=== PATIENT | female | born 1950 | race Hispanic/Latino ===

== ENCOUNTER → 2017-08-15 | Outpatient (CLI) | payer MEDICARE ==
[~2017-08-15] MED LIST: ASPIR-LOW81 MG PO; CALCIUM 600 +1 EAC2 PO; FENOFIBRATE160 MG PO; OMEPRAZOLE40 MG PO; ONGLYZA2.5 MG PO; PRAVASTATIN SOD20 MG PO; ZESTRIL20 MG PO
== END ==
LOC: SLEEP 20:45
PROVIDERS: ATTEND Internal Medicine
DX: G47.33 Obstructive sleep apnea (adult) (pediatric) (principal)

== ENCOUNTER → 2017-10-15 | Day surgery (SDC) | payer MEDICARE ==
[2017-09-30 10:14] LABS: BASOPHILS % 0.5 % (0.0-1.0); EOSINOPHILS # (AUTO) 0.1 (0.0-0.4); EOSINOPHILS % 1.7 % (0.0-6.0); HEMOGLOBIN 13.7 g/dL (12.0-16.0); LYMPHOCYTES # (AUTO) 1.9 (1.0-3.2); MEAN CORPUSCULAR HEMOGLOBIN 29.2 pg (28-32); MEAN CORPUSCULAR HGB CONC 32.6 g/dL (31-35); MEAN CORPUSCULAR VOLUME 89.6 fL (81-99); MONOCYTES # (AUTO) 0.7 (0.2-0.8); MONOCYTES % 8.2 % (4.4-11.3); NEUTROPHILS # (AUTO) 5.5 (2.1-6.9); NEUTROPHILS % 65.5 % (38.7-80.0); PLATELET COUNT 252 x10e3/uL (140-360); RED BLOOD COUNT 4.69 x10e6/uL (3.6-5.1); RED CELL DISTRIBUTION WIDTH 13.2 % (11.7-14.4)
[2017-09-30 10:32] LABS: INR 0.87; PROTHROMBIN TIME 12.3 seconds (11.9-14.5)
[2017-09-30 10:33] LABS: ANION GAP 14.8 mmol/L (8-16); BLOOD UREA NITROGEN 19 mg/dL (7-26); BUN/CREATININE RATIO 23 (6-25); CALCIUM 10.5 mg/dL (8.4-10.2); CARBON DIOXIDE 29 mmol/L (22-29); CHLORIDE 102 mmol/L (98-107); CREATININE, SERUM 0.84 mg/dL (0.57-1.11); EST GLOMERULAR FILTRATION RATE > 60 ML/MIN (60-); GLUCOSE 167 mg/dL (74-118); POTASSIUM 4.8 mmol/L (3.5-5.1); SODIUM 141 mmol/L (136-145)
--- NOTE | 2017-09-30 18:08 | Diagnostic Imaging Report ---
PROCEDURE: Frontal and lateral views of the chest. COMPARISON: None. INDICATIONS: PRE OPERATIVE CHEST XRAY FOR LEFT HEART CATH FINDINGS: Lines/tubes: None. Lungs: Elevation right hemidiaphragm with associated right basilar atelectasis. Left lung is well-inflated and clear. No evidence of pneumonia or pulmonary edema. Pleura: There is no pleural effusion or pneumothorax. Heart and mediastinum: The heart and the mediastinum are normal. Atherosclerotic calcifications in the aorta. Bones: No acute bony abnormality. Right upper quadrant cholecystectomy clips. IMPRESSION: 1. Elevation of the right hemidiaphragm with associated atelectasis. Correlate for right hemidiaphragmatic paralysis. 2. No acute cardiopulmonary disease. Dictated by: Clay Varela M.D. on 09/30/2017 at 18:18 Electronically approved by: Clay Varela M.D. on 09/30/2017 at 18:18
[~2017-10-15] VITALS: Ht 157.5 cm; Wt 83.0 kg
[~2017-10-15] MED LIST changes: +AMLODIPINE BESYL5 MG PO; +FENTANYL CITRATE/PF 100MCG/2 ML INJ ONE; +GLIMEPIRIDE2 MG PO; +HEPARIN SOD/SOD CHLORIDE 2,000 ML ONE; +IOPAMIDOL 370 MG/ML 200 ML INFUS..BTL INJ ONE; +LIDOCAINE HCL 2% LOCAL 20 ML VIAL ONE; +METFORMIN HCL500 MG PO; +METOPROLOL SUCC25 MG PO; +MIDAZOLAM HCL 2 MG/2 ML VIAL ONE; +NITROGLYCERIN/D5W 200 MCG/ML 250 ML ONE; +SODIUM CHLORIDE 0.9% 1000ML 1,000 ML ONE
--- OUTSIDE RECORDS SUMMARY | 2017-10-15 07:45 | XMS REPORT ---
Author Author [facility] Address Unknown Phone Unavailable Care Team Providers Care Consulting Group Analyst Name Role Phone VERONIQUE CHAU Unavailable Unavailable MARY BETH ACEVEDO Unavailable Unavailable Problems This patient has no known problems. Allergies, Adverse Reactions, Alerts This patient has no known allergies or adverse reactions. Medications This patient has no known medications. Results Test Description Test Time Test Comments Text Results Atomic Results Result Comments CHEST 2 VIEWS [place] [address] Patient Name: TEETEE DUNHAM MR #: [id number] : 1950 Age/Sex: 67/F Req #: [id number] Adm Physician: Ordered by: VERONIQUE CHAU MD Report #: [id number] Location: [facility] Room/Bed: Procedure: [id number] DX/CHEST 2 VIEWS Exam Date: 09/30/17 Exam Time : 1105 REPORT STATUS: Signed PROCEDURE: Frontal and lateral views of the chest. COMPARISON: None. INDICATIONS: PRE OPERATIVE CHEST XRAY FOR LEFT HEART CATH FINDINGS: Lines/tubes: None. Lungs: Elevation right hemidiaphragm with associated right basilar atelectasis. Left lung is well-inflated and clear. No evidence of pneumonia or pulmonary edema. Pleura: There is no pleural effusion or pneumothorax. Heart and mediastinum: The heart and the mediastinum are normal. Atherosclerotic calcifications in the aorta. Bones: No acute bony abnormality. Right upper quadrant cholecystectomy clips. IMPRESSION : 1. Elevation of the right hemidiaphragm with associated atelectasis. Correlate for right hemidiaphragmatic paralysis. 2. No acute cardiopulmonary disease. Dictated by: Kelley Varela M.D. on 09/30/2017 at 18:18 Electronically approved by: Kelley Varela M.D. on 09/30/2017 at 18:18 Dictated By: KELLEY VARELA MD 17 Transcribed By: CARISSA on 09/30/171817 COPY TO: VERONIQUE CHAU MD US THYROID [place] [address] Patient Name: TEETEE DUNHAM MR #: [id number] : 1950 Age/Sex: 67/F Req #: [id number] Adm Physician: Ordered by: MARY BETH ACEVEDO MD Report #: [id number] Location: US Room/Bed: Procedure: [id number] US/US THYROID Exam Date: 08/13/17 Exam Time: 1009 REPORT STATUS: Signed PROCEDURE: US THYROID COMPARISON: [facility], CT, CT CHEST W, 07/18/2017, 7:51. INDICATIONS: MULTINODULAR THYROID TECHNIQUE: Transverse and longitudinal wolff-scale sonographic images of the thyroid were obtained and supplemented with color doppler. FINDINGS: Exam limited due to patient inability to lay flat due to respiratory problems. Right thyroid lobe: 4.0 x 1.6 x 2.1 cm. Mildly heterogeneous echogenicity. Normal vascularity. 1.4 x 1.0 x 0.8 cm solid hypoechoic nodular lesion with hyperechoic areas showing posterior acoustic shadowing, consistent with calcifications, in the mid lateral portion. No increased vascularity. No other focal lesions. Left thyroid lobe: 3.1 x 1.4 x 1.7 cm. Normal echogenicity. Normal vascularity. 0.6 x 0.5 x 0.5 cm cystic anechoic lesion in the mid inferior aspect. No other focal lesions. Isthmus: 0.9 cm, enlarged. Mildly heterogeneous echogenicity. Normal vascularity. 1.1 x 0.8 x 1.4 cm solid hypoechoic nodule with internal hyperechoic foci with questionable shadowing. No increased vascularity. CONCLUSION: 1. Normal bilateral thyroid lobe size. Enlarged isthmus. 2. 1.4 cm right and 1.4 cm isthmus hypoechoic nodules with calcifications. Recommend fine needle aspiration biopsy for further evaluation. Mary Beth Ann M.D. Dictated by: Mary Beth Ann M.D. on 2016 at 16:36 Electronically approved by: Mary Beth Ann M.D. on 02/2017 at 16:36 Dictated By: MARY BETH ANN MD 1636 Transcribed By: CARISSA on 08/13/17 1636 COPY TO: MARY BETH ACEVEDO MD CT CHEST W [place] [address] Patient Name: TEETEE DUNHAM MR #: [id number] : 1950 Age/Sex: 67/F Req #: [id number] Adm Physician: Ordered by: VERONIQUE CHAU MD Report #: [id number] Location: CT Room/Bed: Procedure: [id number] CT/CT CHEST W Exam Date: 07/18/17 Exam Time: 0751 REPORT STATUS: Signed PROCEDURE: CT scan of the chest WITH intravenous contrast, using standard protocol. TECHNIQUE: The chest was scanned utilizing a multidetector helical scanner from the lung apex through the level of the adrenal glands after the IV administration of 100 cc of Isovue 370. Coronal and sagittal multiplanar reformations were obtained. COMPARISON: None. INDICATIONS: SHORTNESS OF BREATH, PRECORDIAL PAIN FINDINGS: Lines/tubes: None. Lungs and Airways : Scattered atelectasis in the lingula, right middle lobe and right lower lobe. Otherwise, the lungs and airways are normal with no focal abnormality demonstrated. Pleura: The pleural spaces are clear. Heart and mediastinum: Approximately 3 subcentimeter thyroid nodules, including a partially calcified 0.6 cm right thyroid lobe nodule. No significant mediastinal, hilar or axillary lymphadenopathy is seen. The heart and pericardium are within normal limits. Mild coronary artery and aortic atherosclerotic calcifications. Main pulmonary artery measures 2.5 cm in diameter, within normal limits. Ascending aorta measures 3.1 cm in diameter, within normal limits. Soft tissues: 0.9 cm nodule in the left lateral breast (series 2 image 56). Abdomen: Diffuse hypoattenuation of the liver compatible with hepatic steatosis. Calcified granulomas noted in the liver. Cholecystectomy clips. Limited contrast-enhanced views of the upper abdomen show no abnormality within the visualized liver, spleen, pancreas, or kidneys. The adrenal glands are normal. Bones: Degenerative disc disease, more prominent in the mid thoracic spine. IMPRESSION: 1. No acute thoracic abnormalities. 2. Few subcentimeter thyroid nodules which can be better evaluated with thyroid ultrasound. 3. Subcentimeter nodule in the left lateral breast. Recommend correlation with breast cancer screening. 4. Hepatic steatosis. Dictated by: Ranjit Younger M.D. on 07/18/2017 at 11:28 Electronically approved by: Ranjit Younger M.D. on 07/18/2017 at 11:28 Dictated By: RANJIT YOUNGER MD 1128 Transcribed By: CARISSA on 07/18/178 COPY TO: VERONIQUE CHAU MD
--- NOTE | 2017-10-15 11:12 | Operative Report ---
DATE OF PROCEDURE: October 15, 2017 PROCEDURES 1. Left heart catheterization. 2. Selective coronary angiogram. 3. Left ventriculogram. INDICATIONS: Recurrent chest pain. DESCRIPTION OF PROCEDURE: After informed consent, the patient was brought to the cardiac catheterization laboratory and placed on the table. Both groins were painted and draped in a sterile fashion. Lidocaine was injected in the right groin for local anesthesia. The right femoral artery was accessed by Seldinger technique, and a 5-Montserratian sheath was placed in the right femoral artery. The left main artery was cannulated using a JL4 5-Montserratian catheter. Coronary angiogram was performed, and images were obtained in multiple views. The right coronary artery was cannulated using a 3DRC 5-Montserratian catheter. Coronary angiogram was performed, and images were obtained in multiple views. LV-gram was performed using a pigtail catheter. The patient tolerated the procedure without any complications. REPORT LEFT MAIN: Short vessel and free of disease. LEFT ANTERIOR DESCENDING: Large caliber vessel. There are luminal irregularities. LEFT CIRCUMFLEX: Large caliber vessel. There is diffuse disease. RIGHT CORONARY ARTERY: Large caliber vessel, tortuous and is free of disease. LV-GRAM: Hypercontractile left ventricle. Overall ejection fraction is 75% overall. HEMODYNAMICS: Aortic pressure 136/75, LV pressure 136/10, LVEDP 20. PLAN: Medical management. Job#: [id number] MONET DURBIN
== END | disposition home or self-care (01) ==
LOC: CATH LAB 07:42
DX: R07.2 Precordial pain (principal); I10 Essential (primary) hypertension; E78.5 Hyperlipidemia, unspecified; E66.9 Obesity, unspecified; Z01.810 Encounter for preprocedural cardiovascular examination; Z01.812 Encounter for preprocedural laboratory examination; Z01.818 Encounter for other preprocedural examination; Z68.35 Body mass index [BMI] 35.0-35.9, adult; Z87.891 Personal history of nicotine dependence
CPT/HCPCS: 36415; 71046; 77002; 80048; 85025; 85610; 93005; 93458; J2001; J2250; J7030; Q9967; 36140

== ENCOUNTER → 2017-11-28 | Outpatient (CLI) | payer MEDICARE ==
[~2017-11-28] MED LIST changes: -FENTANYL CITRATE/PF 100MCG/2 ML INJ ONE; -HEPARIN SOD/SOD CHLORIDE 2,000 ML ONE; -IOPAMIDOL 370 MG/ML 200 ML INFUS..BTL INJ ONE; -LIDOCAINE HCL 2% LOCAL 20 ML VIAL ONE; -MIDAZOLAM HCL 2 MG/2 ML VIAL ONE; -NITROGLYCERIN/D5W 200 MCG/ML 250 ML ONE; -SODIUM CHLORIDE 0.9% 1000ML 1,000 ML ONE
--- NOTE | 2017-12-01 07:44 | Diagnostic Imaging Report ---
Date and Time: 11/28/2017 Procedure: Ultrasound-guided fine-needle aspiration of thyroid nodules in the right lobe and isthmus electric power machine operator: Dr. Choi Pre-operative diagnosis: Suspicious thyroid nodules Post-operative diagnosis: Suspicious thyroid nodules Conscious Sedation: None The patient's heart rate and pulse oximetry were continuously monitored by the interventional radiology nurse. Blood pressure was monitored at 5 minute intervals. Additional Medications: Lidocaine 1% for local anesthesia Fluoroscopy time: 0 Dose-area Product: 0 mGycm2. Frontal Air Kerma: 0 Contrast used: 0 Estimated blood loss: Minimal Specimens: Fine-needle aspiration specimens x3 from each nodule (6 specimens total) Implants: None Blood products administered: None Condition at completion of procedure: Stable Disposition: Discharged home DISCUSSION: Informed consent was obtained and documented in the medical record after discussion of risks and benefits. The patient was placed in the supine position on the sonographic table. Preliminary sonographic evaluation confirmed presence of suspicious nodules within the right lobe of the thyroid as well as the isthmus. The cervical region was then prepped and draped in standard sterile fashion. Attention was first turned to the right thyroid nodule. 1% lidocaine was infiltrated into the skin and subcutaneous tissues for local anesthesia. Then under continuous sonographic guidance, a total of 3 fine-needle aspiration specimens were obtained using 25-gauge needles. Specimens were submitted to on-site cytopathology personnel and adequacy was confirmed. Attention was then turned to the isthmic nodule. 1% lidocaine was again infiltrated into the skin and subcutaneous tissues for local anesthesia. Under continuous sonographic guidance, a total of 3 fine-needle aspiration specimens were obtained using 25-gauge needles. Specimens were submitted to on-site cytopathology personnel and adequacy was confirmed. The sampling needle was removed and sterile dressings were applied. The patient tolerated the procedure well without immediate complication. IMPRESSION: Successful ultrasound-guided fine-needle aspiration of right lobar and isthmic thyroid nodules as above. Signed by: Dr. Donald Choi M.D. on 12/01/2017 7:40 AM
== END ==
LOC: US 06:53
PROVIDERS: ATTEND Internal Medicine
DX: E04.2 Nontoxic multinodular goiter (principal)
CPT/HCPCS: 10022; 76942; 88172; 88173; 88305

== ENCOUNTER → 2018-03-26 | Day surgery (SDC) | payer MEDICARE ==
[2018-03-24 10:22] LABS: BASOPHILS % 0.5 % (0.0-1.0); EOSINOPHILS # (AUTO) 0.1 (0.0-0.4); EOSINOPHILS % 1.7 % (0.0-6.0); HEMATOCRIT 39.8 % (34.2-44.1); HEMOGLOBIN 12.5 g/dL (12.0-16.0); LYMPHOCYTES # (AUTO) 1.7 (1.0-3.2); MEAN CORPUSCULAR HEMOGLOBIN 27.6 pg (28-32); MEAN CORPUSCULAR HGB CONC 31.4 g/dL (31-35); MEAN CORPUSCULAR VOLUME 87.9 fL (81-99); MONOCYTES # (AUTO) 0.7 (0.2-0.8); MONOCYTES % 8.1 % (4.4-11.3); NEUTROPHILS # (AUTO) 5.9 (2.1-6.9); NEUTROPHILS % 69.5 % (38.7-80.0); PLATELET COUNT 289 x10e3/uL (140-360); RED BLOOD COUNT 4.53 x10e6/uL (3.6-5.1); RED CELL DISTRIBUTION WIDTH 13.7 % (11.7-14.4)
[~2018-03-26] MED LIST changes: +FENTANYL CITRATE/PF 100MCG/2 ML INJ ONE; +LOSARTAN POTAS100 MG PO; +METAMUCIL; +MIDAZOLAM HCL 2 MG/2 ML VIAL ONE; +PROPOFOL IV EMULSION 10 MG/ML 50 ML VIAL ONE; +SYMBICORT 16010.2 GM; +VITAMIN D250000 UNIT
== END | disposition home or self-care (01) ==
LOC: OR 06:32
PROVIDERS: ATTEND Internal Medicine Gastroenterology
DX: Z12.11 Encounter for screening for malignant neoplasm of colon (principal); K57.30 Diverticulosis of large intestine without perforation or abscess without bleeding; K64.8 Other hemorrhoids; K21.9 Gastro-esophageal reflux disease without esophagitis; E66.9 Obesity, unspecified; I10 Essential (primary) hypertension; E11.9 Type 2 diabetes mellitus without complications; J44.9 Chronic obstructive pulmonary disease, unspecified; G47.33 Obstructive sleep apnea (adult) (pediatric); E78.5 Hyperlipidemia, unspecified; Z71.3 Dietary counseling and surveillance; Z01.810 Encounter for preprocedural cardiovascular examination; Z01.812 Encounter for preprocedural laboratory examination; Z79.82 Long term (current) use of aspirin; Z79.84 Long term (current) use of oral hypoglycemic drugs; Z68.32 Body mass index [BMI] 32.0-32.9, adult; Z87.891 Personal history of nicotine dependence
CPT/HCPCS: 36415 ×2; 82948; 85025; 93005; G0121; J2250; 45378

== ENCOUNTER → 2018-04-23 | Day surgery (SDC) | payer MEDICARE ==
[2018-04-16 12:47] LABS: BASOPHILS % 0.3 % (0.0-1.0); EOSINOPHILS # (AUTO) 0.1 (0.0-0.4); EOSINOPHILS % 1.5 % (0.0-6.0); HEMATOCRIT 38.7 % (34.2-44.1); HEMOGLOBIN 11.9 g/dL (12.0-16.0); LYMPHOCYTES # (AUTO) 1.6 (1.0-3.2); MEAN CORPUSCULAR HEMOGLOBIN 27.5 pg (28-32); MEAN CORPUSCULAR HGB CONC 30.7 g/dL (31-35); MEAN CORPUSCULAR VOLUME 89.6 fL (81-99); MONOCYTES # (AUTO) 0.7 (0.2-0.8); MONOCYTES % 8.2 % (4.4-11.3); NEUTROPHILS # (AUTO) 6.1 (2.1-6.9); NEUTROPHILS % 70.7 % (38.7-80.0); PLATELET COUNT 277 x10e3/uL (140-360); RED BLOOD COUNT 4.32 x10e6/uL (3.6-5.1); RED CELL DISTRIBUTION WIDTH 13.9 % (11.7-14.4)
[2018-04-16 13:07] LABS: ANION GAP 17.4 mmol/L (8-16); BLOOD UREA NITROGEN 13 mg/dL (7-26); BUN/CREATININE RATIO 16 (6-25); CALCIUM 9.7 mg/dL (8.4-10.2); CARBON DIOXIDE 27 mmol/L (22-29); CHLORIDE 102 mmol/L (98-107); CREATININE, SERUM 0.83 mg/dL (0.57-1.11); EST GLOMERULAR FILTRATION RATE > 60 ML/MIN (60-); GLUCOSE 172 mg/dL (74-118); POTASSIUM 4.4 mmol/L (3.5-5.1); SODIUM 142 mmol/L (136-145)
[~2018-04-23] MED LIST changes: +ALBUTEROL0.63 MG/3 NEB; +BUPIVACAINE HC 0.75% PF 10ML VIAL INJ ONE; +CHONDR SU A NA/HYALUR SOD 1 EACH KIT IO ONE; +CYCLOPENTOLATE HCL 2% OPTH SOLN 2 ML BTL OP ONE; +EPINEPHRINE HCL INJ 1 MG/ML AMP ONE; -FENTANYL CITRATE/PF 100MCG/2 ML INJ ONE; +GATIFLOXACIN(OPTH) 5 ML LIQD ONE; +LIDOCAINE 2% /EPINEPHRINE 20 ML SDV INJ ONE; +LIDOCAINE HCL-PF 4% 40 MG/1 ML 5ML AMP ONE; +METOPROLOL TARTRATE INJ 1 MG/ML VIAL ONE; -MIDAZOLAM HCL 2 MG/2 ML VIAL ONE; +PHENYLEPHRINE HCL 2 ML DROPS ONE; +PILOCARPINE HCL(OPTH) 15 ML LIQD ONE; +POVIDONE IODINE 5% (OPTH) 30 ML BTL ONE; +PROPOFOL IV EMULSION 10 MG/ML 20 ML VIAL ONE; -PROPOFOL IV EMULSION 10 MG/ML 50 ML VIAL ONE; +SPIRIVA18 MCG INH; +TOBRAMYCIN/DEXAMETHASONE(OPTH) 3.5 GM TUBE ONE; +VIT D2 PO
== END | disposition home or self-care (01) ==
LOC: OR 05:08
PROVIDERS: ATTEND Ophthalmology
DX: H25.11 Age-related nuclear cataract, right eye (principal); E11.9 Type 2 diabetes mellitus without complications; I10 Essential (primary) hypertension; J44.9 Chronic obstructive pulmonary disease, unspecified; E78.5 Hyperlipidemia, unspecified; K21.9 Gastro-esophageal reflux disease without esophagitis; Z01.810 Encounter for preprocedural cardiovascular examination; Z01.812 Encounter for preprocedural laboratory examination; Z79.82 Long term (current) use of aspirin; Z79.84 Long term (current) use of oral hypoglycemic drugs; Z87.891 Personal history of nicotine dependence
CPT/HCPCS: 36415 ×2; 66982; 80048; 82948; 85025; 93005; J0171; J2001; V2632

== ENCOUNTER → 2018-10-20 | Outpatient (CLI) | payer MEDICARE ==
[~2018-10-20] MED LIST changes: -BUPIVACAINE HC 0.75% PF 10ML VIAL INJ ONE; -CHONDR SU A NA/HYALUR SOD 1 EACH KIT IO ONE; -CYCLOPENTOLATE HCL 2% OPTH SOLN 2 ML BTL OP ONE; -EPINEPHRINE HCL INJ 1 MG/ML AMP ONE; -GATIFLOXACIN(OPTH) 5 ML LIQD ONE; +IOPAMIDOL 370 MG/ML 200 ML INFUS..BTL INJ ONE; -LIDOCAINE 2% /EPINEPHRINE 20 ML SDV INJ ONE; -LIDOCAINE HCL-PF 4% 40 MG/1 ML 5ML AMP ONE; -METOPROLOL TARTRATE INJ 1 MG/ML VIAL ONE; -PHENYLEPHRINE HCL 2 ML DROPS ONE; -PILOCARPINE HCL(OPTH) 15 ML LIQD ONE; -POVIDONE IODINE 5% (OPTH) 30 ML BTL ONE; -PROPOFOL IV EMULSION 10 MG/ML 20 ML VIAL ONE; +SODIUM CHLORIDE 0.9% 50ML 50 ML ONE; -TOBRAMYCIN/DEXAMETHASONE(OPTH) 3.5 GM TUBE ONE
[2018-10-20 11:24] LABS: BLOOD UREA NITROGEN 19 mg/dL (8-26); BUN/CREATININE RATIO 24 (6-25); CREATININE, SERUM 0.8 mg/dL (0.6-1.1); EST GLOMERULAR FILTRATION RATE > 60 ML/MIN (60-)
--- NOTE | 2018-10-20 12:57 | Diagnostic Imaging Report ---
EXAM: CT Chest WITH contrast 10/20/2018 11:03 AM INDICATION: Dyspnea. COPD. COMPARISON: None TECHNIQUE: Chest was scanned utilizing a multidetector helical scanner from the lung apex through the level of the adrenal glands without administration of IV contrast. Coronal and sagittal reformations were obtained. Routine protocol was performed. IV CONTRAST: 100 mL of Isovue 370 RADIATION DOSE: Total DLP: 470.29 mGy*cm Estimated effective dose: (DLP x 0.014 x size factor) mSv COMPLICATIONS: None FINDINGS: LINES/ TUBES: None. LUNGS AND AIRWAYS: Right basilar segmental atelectasis associated with moderate elevation of the right hemidiaphragm. Left basilar and lingular plate like atelectasis. No consolidation. PLEURA: The pleural spaces are clear. HEART AND MEDIASTINUM: The thyroid gland is normal. No mediastinal, hilar or axillary lymphadenopathy. The heart is normal in size.. There is no pericardial effusion. There are mild atherosclerotic calcifications in the thoracic aorta. UPPER ABDOMEN: Limited non-contrast views of the upper abdomen show a 4 mm nonobstructing calculus in the interpolar region of the right kidney on image 106. Hepatomegaly and hepatic steatosis. Status post cholecystectomy. Punctate calcified granuloma in the hepatic dome. The adrenal glands are normal. BONES: There are degenerative changes in the thoracic spine. SOFT TISSUES: Unremarkable. IMPRESSION: Right basilar atelectasis associated with moderate dilatation of the right hemidiaphragm. Hepatomegaly and hepatic steatosis incidentally noted. Signed by: Dr. Azucena Rodriguez M.D. on 10/20/2018 12:53 PM
== END ==
LOC: CT 10:51
PROVIDERS: ATTEND Internal Medicine Critical Care Medicine
DX: R06.00 Dyspnea, unspecified (principal); R16.0 Hepatomegaly, not elsewhere classified; K76.0 Fatty (change of) liver, not elsewhere classified
CPT/HCPCS: 36415; 71260; 82565; 84520; Q9967

== ENCOUNTER → 2018-12-03 | Outpatient (CLI) | payer MEDICARE ==
[~2018-12-03] MED LIST changes: -IOPAMIDOL 370 MG/ML 200 ML INFUS..BTL INJ ONE; -SODIUM CHLORIDE 0.9% 50ML 50 ML ONE
[2018-12-03 11:35] LABS: ABG HCO3 26 mmol/L (23-28); ABG PCO2 43 mmHg (41-51); ABG PH 7.35 (7.31-7.41); ABG PO2 62 mmHg (80-105)
== END ==
LOC: RESP 10:41
PROVIDERS: ATTEND Internal Medicine Critical Care Medicine
DX: J44.9 Chronic obstructive pulmonary disease, unspecified (principal)
CPT/HCPCS: 36415; 82805

== ENCOUNTER → 2019-06-08 | Outpatient (CLI) | payer MEDICARE, OTHER ==
--- NOTE | 2019-06-08 15:26 | Diagnostic Imaging Report ---
EXAMINATION: CERVICAL SPINE 4 OR 5 VIEWS INDICATION: Neck pain, headache COMPARISON: None FINDINGS: AP, lateral, and oblique images of the cervical spine were obtained. No acute fracture. There is reversal of the normal cervical lordosis. Grade 1 anterolisthesis at C2-3 and C3-4. Multilevel degenerative changes with severe disc space narrowing and osteophyte formation most notably at C4-5 and C5-6. Oblique images demonstrate multilevel foraminal narrowing. The prevertebral soft tissues are normal in thickness. IMPRESSION: No acute fracture. Severe multilevel degenerative changes and reversal of normal cervical lordosis. Grade 1 anterolisthesis at C2-3 and C3-4. Signed by: Ulises Floyd MD on 06/08/2019 3:23 PM
== END ==
LOC: RAD 14:09
PROVIDERS: ATTEND Internal Medicine
DX: R51 Headache (principal)
CPT/HCPCS: 72050

== ENCOUNTER → 2022-03-01 | Outpatient (CLI) | payer MEDICARE, OTHER | LOC: DX 11:09 | PROVIDERS: ATTEND Internal Medicine | DX: Z01.818 Encounter for other preprocedural examination (principal); J98.6 Disorders of diaphragm | CPT/HCPCS: 71046 ==